=== PATIENT | female | born 1945 | race Caucasian/White ===

== ENCOUNTER → 2016-08-30 | Outpatient (CLI) | payer MEDICARE, BC | END | disposition home or self-care (01) | LOC: LABWHC1 10:00 | PROVIDERS: ATTEND Internal Medicine | DX: E11.9 Type 2 diabetes mellitus without complications (principal); I25.10 Atherosclerotic heart disease of native coronary artery without angina pectoris; I10 Essential (primary) hypertension; K21.0 Gastro-esophageal reflux disease with esophagitis; J44.9 Chronic obstructive pulmonary disease, unspecified | CPT/HCPCS: 36415; 82272 ==

== ENCOUNTER → 2017-05-18 | Outpatient (CLI) | payer MEDICARE, BC ==
[2017-05-18 09:32] LABS: CH 30.7; CHCM 32.5; HCT 37.7 % (34.0-46.0); HDW 2.87; HGB 12.7 gm/dL (11.4-16.0); MCH 31.9 pg (25.0-35.0); MCHC 33.6 g/dL (31.0-37.0); MCV 95.1 fL (80.0-100.0); Mean Platelet Volume 7.2; RBC 3.96 m/uL (3.80-5.40); RDW 14.3 % (11.5-15.5)
[2017-05-18 09:46] LABS: WBC 54.2 k/uL (3.8-10.6)
[2017-05-18 10:14] LABS: ALT 36 U/L (9-52); AST 20 U/L (14-36); Alkaline Phosphatase 108 U/L (38-126); Anion Gap 8 mmol/L; Blood Urea Nitrogen 16 mg/dL (7-17); Calcium 9.2 mg/dL (8.4-10.2); Carbon Dioxide 31 mmol/L (22-30); Chloride 104 mmol/L (98-107); Cholesterol 132 mg/dL (<200); Glucose 101 mg/dL (74-99); HDL Cholesterol 37 mg/dL (40-60); Non-African American GFR(MDRD) >60 (>60 ml/min/1.73 sqM); Potassium 4.5 mmol/L (3.5-5.1); Sodium 143 mmol/L (137-145); Total Bilirubin 0.5 mg/dL (0.2-1.3); Total Protein 6.1 g/dL (6.3-8.2)
--- NOTE | 2017-05-18 10:32 | XR ---
EXAMINATION TYPE: XR chest 2V DATE OF EXAM: 05/18/2017 COMPARISON: 09/17/2013 INDICATION: Hypertensive heart disease without heart failure, COPD, CHF TECHNIQUE: Frontal and lateral views of the chest are obtained. FINDINGS: The heart size is normal. The pulmonary vasculature is normal. The lungs are clear. IMPRESSION: 1. No acute pulmonary process.
[2017-05-19 11:35] LABS: Urine Creatinine 257.1 mg/dL
== END | disposition home or self-care (01) ==
LOC: LABWHC1 08:26
PROVIDERS: ATTEND Internal Medicine
DX: Z00.01 Encounter for general adult medical examination with abnormal findings (principal); E11.9 Type 2 diabetes mellitus without complications; I11.9 Hypertensive heart disease without heart failure; E66.1 Drug-induced obesity; K21.0 Gastro-esophageal reflux disease with esophagitis
CPT/HCPCS: 36415; 71020; 80053; 80061; 82043; 82272; 82570; 83036; 84439; 84443; 85027

== ENCOUNTER → 2018-02-26 | Outpatient (CLI) | payer MEDICARE, BC ==
--- NOTE | 2018-02-28 09:23 | MM ---
Reason for exam: screening (asymptomatic). Last mammogram was performed 2 years and 2 months ago. History: Patient is postmenopausal. Family history of breast cancer in sister at age 46. Physical Findings: A clinical breast exam by your physician is recommended on an annual basis and results should be correlated with mammographic findings. MG Screening Mammo w CAD Bilateral CC and MLO view(s) were taken. Prior study comparison: December 13, 2015, bilateral MG 3d screening mammo w/cad. November 20, 2014, bilateral MG screening mammo w CAD. There are scattered fibroglandular densities. No significant changes when compared with prior studies. ASSESSMENT: Benign, BI-RAD 2 RECOMMENDATION: Routine screening mammogram of both breasts in 1 year.
== END | disposition home or self-care (01) ==
LOC: RADMAMWWP 08:37
PROVIDERS: ATTEND Internal Medicine
DX: Z12.31 Encounter for screening mammogram for malignant neoplasm of breast (principal)
CPT/HCPCS: 77067

== ENCOUNTER → 2018-06-25 | Outpatient (CLI) | payer MEDICARE, BC ==
[2018-06-25 10:12] LABS: HCT 39.5 % (34.0-46.0); HGB 12.1 gm/dL (11.4-16.0); Hypochromasia Slight; MCH 28.4 pg (25.0-35.0); MCHC 30.7 g/dL (31.0-37.0); MCV 92.3 fL (80.0-100.0); Mean Platelet Volume 6.7; Platelet Count 249 k/uL (150-450); RBC 4.28 m/uL (3.80-5.40); RDW 15.8 % (11.5-15.5)
[2018-06-25 10:29] LABS: WBC 63.2 k/uL (3.8-10.6)
[2018-06-25 16:50] LABS: Albumin 4.1 g/dL (3.80-4.90); Albumin/Globulin Ratio 2.28 (1.20-2.10); Anion Gap 8.9 mmol/L (4.00-12.00); Calcium 8.8 mg/dL (8.7-10.3); Carbon Dioxide 28.1 mmol/L (21.6-31.8); Globulin 1.8 g/dL (1.6-3.3); LDL Cholesterol,Calculated 87.8 mg/dL (0.0-131.0); Total Bilirubin 0.6 mg/dL (0.2-1.2); Total Protein 5.9 g/dL (6.2-8.2); VLDL Calculation 19.2 mg/dL (5.00-40.00)
[2018-06-25 16:58] LABS: T4, Free (Free Thyroxine) 0.9 ng/dL (0.80-1.80)
[2018-06-25 18:00] LABS: Hemoglobin A1C 6.3 % (4.0-6.0)
== END | disposition home or self-care (01) ==
LOC: LABWHC1 08:43
PROVIDERS: ATTEND Internal Medicine
DX: Z00.01 Encounter for general adult medical examination with abnormal findings (principal); I11.9 Hypertensive heart disease without heart failure; E11.9 Type 2 diabetes mellitus without complications; E78.2 Mixed hyperlipidemia; K21.0 Gastro-esophageal reflux disease with esophagitis
CPT/HCPCS: 36415; 80053; 80061; 82043; 82272; 82570; 83036; 84439; 84443; 85027

== ENCOUNTER 2018-10-02 06:59 | Day surgery (SDC) | payer MEDICARE, BC ==
[2018-09-30 10:48] VITALS: BMI 54.6
[~2018-10-02 06:59] MED LIST: LACTATED RINGERS 1,000 ML IV SCH; LIDOCAINE 1% 20 ML VIAL (10MG/ML) FOR IV START INTRADERMA PRN; MOXIFLOXACIN HCL 0.5% DROPS 3 ML BTL OP NR; TETRACAINE 0.5% OPHTH (PF) DROPS 4 ML BTL OP NR
[2018-10-02] MEDS: PILOCARPINE 2% OPHTH DROPS 15 ML BTL OP NR ×3 (07:15→07:30)
[2018-10-02 07:58] VITALS: TEMP 97.1
[2018-10-02] MEDS ORDERED: fentaNYL (PF) 50 MCG/ML 2 ML AMP ONE (08:23)
[2018-10-02] MEDS ORDERED: MIDAZOLAM 2 MG/2 ML VIAL ONE (08:23)
[2018-10-02] MEDS ORDERED: TIMOLOL 0.5% OPHTH SOLN (PF) 0.2 ML DROPERETTE RIGHT EYE ONE (08:49)
[2018-10-02] MEDS ORDERED: BALANCED SALT IRRIG SOLN COMB2 15 ML IRRIG.SOLN INTRAOCULA ONE (08:49)
[2018-10-02] MEDS ORDERED: EPINEPHrine (PF) 0.3 ML in BALANCED SALT IRRIG SOLN COMB2 500 ML IRRIGATION ONE (08:51)
[2018-10-02] MEDS ORDERED: LIDOCAINE (PF) 10 MG/ML 5ML AMP SQ ONE (08:56)
[2018-10-02] MEDS ORDERED: TRYPAN BLUE 0.06% SYRINGE 0.5 ML SYRINGE MISCELLANE ONE (09:04)
[2018-10-02] MEDS ORDERED: HYALURONATE SODIUM INTRAOCULAR 1 EACH SYRINGE (12MG/ML) INTRAOCULA ONE (09:04)
--- NOTE | 2018-10-02 09:52 | P.OP ---
Date of Procedure: 10/02/18 Preoperative Diagnosis: Fuch's dystrophy Postoperative Diagnosis: same Procedure(s) Performed: DMEK Implants: none Anesthesia: MAC Surgeon: Jon Zamudio Pathology: none sent Condition: stable Disposition: same day Indications for Procedure: blurry vision Operative Findings: mild AC bleeding, otherwise no complications. Significant musculoskeletal discomfort and associated movement
[2018-10-02 10:13] VITALS: RESP 18
[2018-10-02 11:12] VITALS: BP 140/83; PULSE 56
--- NOTE | 2018-10-02 19:46 | OP ---
OPERATIVE REPORT DATE OF SURGERY: October 02, 2018. PROCEDURE PERFORMED: Descemet's endothelial keratoplasty of the right eye. PREOPERATIVE DIAGNOSIS: Fuchs corneal dystrophy. POSTOPERATIVE DIAGNOSIS: Fuchs corneal dystrophy SURGEON: Dr. Jon Zamudio. ANESTHESIA: Topical. ESTIMATED BLOOD LOSS: None. SPECIMEN: Taken none. NARRATIVE: After obtaining the appropriate consent, the patient was brought to the operating room. There she was placed under cardiac monitoring, prepped and draped in the usual sterile manner. She was approached from her right temporal side and for paracenteses at the axis of 5 o'clock, 10 o'clock, 12:00 o'clock, and 4 o'clock were placed at the corneal limbus. Through this opening, 1% Xylocaine MPF 50 50 mix with balanced salt solution was injected into the anterior chamber. This was followed by installation of Trypan blue which was left in the eye for approximately 3 minutes. This was irrigated away and replaced with Amvisc. An 8.25 mm Hanan trephination ring was placed on the cornea gently and then was removed and the outline of the area was marked with a gentian mary marker. A [employer] hook was inserted into the anterior chamber and stripping at the limits of the pabon placed on the anterior cornea. The cornea was easily stripped without much difficulty along its entire 360 degree circumference. Once this was accomplished, a 2.5 mm keratome was used to create a self-sealing corneal flap incision at the 9 o'clock position. Through this opening, a Descemet's membrane stripper instrument was inserted and the entire cornea endothelial layer of the cornea was removed in 1 piece. Irrigation aspiration was then used to remove the viscoelastic and balanced salt solution was used to replace the volume in the anterior chamber. The donor tissue, which was stripped and pre-loaded from the eye bank was properly identified as tissue #[id number], cornea and Optisol posterior layer only at this time. The previously prepared tissue was brought directly to the patient and the tissue was instilled into the patient's eye without difficulty. The temporal incision was closed with a single 10-0 nylon fashion suture in an X fashion. Manipulation of the donor tissue began with the usual measures to lay the tissue in its proper orientation and out within the patient's cornea. It did require a couple of episodes of re- instilling balanced salt solution and then subsequently removing it in order to get the tissue to be oriented correctly. Once this was accomplished, a gas bubble consisting of 20% SF6 was placed underneath the tissue and buoyed it and securing it in the proper position. During this stage of the procedure, it was identified that there was some bleeding that occurred at the 8 o'clock position in the patient's eye. Very quickly the eye pressure was brought to approximately 40-50 mmHg in an effort to tamponade further bleeding within the eye. The pressure was maintained. The patient was able to perceive light through the eye at this pressure for approximately 20 minutes. Once that time was completed, balanced salt solution replaced a portion of the SF6 gas in the front chamber and the eye was brought to a reasonable intra-ocular pressure by palpation. She was then returned to the recovery area lying flat on her back and stayed in place in the recovery area for approximately an hour and 15 minutes. After this phase of the procedure, she was asked to sit upright and was examined at the slit lamp. There was noted a small hyphema within the anterior chamber. However, the Descemet's membrane was in the proper position with an adequate air bubble and fluid in her face. She was returned home without further intervention. There were no additional difficulties encountered during the procedure and she was discharged to home from the recovery area in good condition. MMKILEY / CLARITA: [id number] /
[2018-10-03 10:24] LABS: Glucose,Whole Blood 112 mg/dL (75-99)
== END 2018-10-02 11:37 | disposition home or self-care (01) ==
LOC: OR 06:59
PROVIDERS: ATTEND Ophthalmology
DX: H18.51 Endothelial corneal dystrophy (principal); H40.50 Glaucoma secondary to other eye disorders, unspecified eye; H40.831 Aqueous misdirection, right eye; H26.9 Unspecified cataract; H00.026 Hordeolum internum left eye, unspecified eyelid; H00.023 Hordeolum internum right eye, unspecified eyelid; H52.13 Myopia, bilateral; H52.4 Presbyopia; Z96.1 Presence of intraocular lens; I11.0 Hypertensive heart disease with heart failure; I50.9 Heart failure, unspecified; J43.9 Emphysema, unspecified; Z86.73 Personal history of transient ischemic attack (TIA), and cerebral infarction without residual deficits; M19.90 Unspecified osteoarthritis, unspecified site; Z87.891 Personal history of nicotine dependence; E66.9 Obesity, unspecified; Z68.43 Body mass index [BMI] 50.0-59.9, adult; Z95.820 Peripheral vascular angioplasty status with implants and grafts; Z79.84 Long term (current) use of oral hypoglycemic drugs; Z79.02 Long term (current) use of antithrombotics/antiplatelets; Z79.82 Long term (current) use of aspirin; Z79.899 Other long term (current) drug therapy
CPT/HCPCS: 87070; 87205; 87075; 65756; V2785; J2250; J0171; J2001; J3010

== ENCOUNTER → 2019-05-01 | Outpatient (CLI) | payer MEDICARE, BC ==
[2019-05-01 10:10] LABS: Appearance,Urine Clear (Clear); Bacteria,Urine Rare /hpf; Bilirubin,Urine Negative (Negative); Blood,Urine Negative (Negative); Color,Urine Yellow; Glucose,Urine (UA) Negative (Negative); Ketones,Urine Negative (Negative); Leukocyte Esterase,Urine Moderate (Negative); Mucus,Urine Rare /hpf; Nitrite,Urine Negative (Negative); PH, Urine 5.5 (5.0-8.0); Protein,Urine Negative (Negative); RBC,Urine 2 /hpf (0-5); Specific Gravity,Urine 1.025 (1.001-1.035); Squamous Epithelial Cell,Urine 4 /hpf (0-4); WBC,Urine 8 /hpf (0-5)
[2019-05-01 10:14] LABS: HGB 12.2 gm/dL (11.4-16.0); MCH 30.9 pg (25.0-35.0); MCHC 32.9 g/dL (31.0-37.0); Mean Platelet Volume 6.4; Platelet Count 218 k/uL (150-450); RBC 3.94 m/uL (3.80-5.40); RDW 15.8 % (11.5-15.5)
[2019-05-01 10:31] LABS: WBC 68.7 k/uL (3.8-10.6)
[2019-05-01 11:58] LABS: Lymphocytes # (M) 61.14 k/uL (1.0-4.8); Monocytes # (M) 0.69 k/uL (0-1.0); Neutrophils # (M) 6.87 k/uL (1.3-7.7); Neutrophils % (M) 10 %; Nucleated Red Blood Cells 0 /100 WBC (0-0); Total Cells Counted 100
[2019-05-01 12:02] LABS: Poikilocytosis (M) Present
[2019-05-01 12:35] LABS: Erythrocyte Sedimentation Rate 16 mm/hr (0-20)
[2019-05-01 17:09] LABS: Albumin 4.1 g/dL (3.80-4.90); Albumin/Globulin Ratio 2.28 (1.60-3.17); Anion Gap 8.2 mmol/L (4.00-12.00); BUN/Creat Ratio 26.25 Ratio (12.00-20.00); C Reactive Protein 0.8 mg/dL (0.0-0.8); Calcium 9.1 mg/dL (8.7-10.3); Carbon Dioxide 27.8 mmol/L (21.6-31.8); Chol/HDL Ratio 4.5; Globulin 1.8 g/dL (1.6-3.3); Magnesium 1.6 mg/dL (1.5-2.4); Non-African American GFR(CKD) 74.2 (60.0-200.0); Phosphorus 3.3 mg/dL (2.4-5.1); Potassium 4.3 mmol/L (3.5-5.5); Total Bilirubin 0.7 mg/dL (0.3-1.2); Total Protein 5.9 g/dL (6.2-8.2)
[2019-05-01 18:05] LABS: Hemoglobin A1C 6.3 % (4.0-6.0)
== END | disposition home or self-care (01) ==
LOC: LABWHC1 09:07
PROVIDERS: ATTEND Internal Medicine
DX: D64.9 Anemia, unspecified (principal); J44.9 Chronic obstructive pulmonary disease, unspecified; E87.8 Other disorders of electrolyte and fluid balance, not elsewhere classified; M10.9 Gout, unspecified; E78.5 Hyperlipidemia, unspecified; I10 Essential (primary) hypertension; E03.9 Hypothyroidism, unspecified; E55.9 Vitamin D deficiency, unspecified
CPT/HCPCS: 36415; 80053; 80061; 81001; 82306; 82550; 83036; 83735; 84100; 84439; 84443; 85025; 85652; 86140

== ENCOUNTER 2021-12-21 06:50 | Day surgery (SDC) | payer MEDICARE, BC ==
[~2021-12-21 06:50] MED LIST changes: +ATROPINE OPHTH SOLN 1% 5ML BTL OPHTHALMIC PRN; +LIDOCAINE 1% (10MG/ML) FOR IV START INTRADERMA PRN; -LIDOCAINE 1% 20 ML VIAL (10MG/ML) FOR IV START INTRADERMA PRN; -MOXIFLOXACIN HCL 0.5% DROPS 3 ML BTL OP NR; +MOXIFLOXACIN HCL 0.5% DROPS 3 ML BTL OP PRN; -TETRACAINE 0.5% OPHTH (PF) DROPS 4 ML BTL OP NR; +TIMOLOL 0.5% OPHTH DROPS 5 ML BTL OP PRN
[2021-12-21 08:07] VITALS: TEMP 97.5
[2021-12-21] MEDS: PILOCARPINE 2% OPHTH DROPS 15 ML BTL OP PRN ×3 (08:15→08:25)
[2021-12-21 08:27] LABS: Glucose,Whole Blood 108 mg/dL (70-110)
[2021-12-21] MEDS ORDERED: fentaNYL (PF) 50 MCG/ML 2 ML AMP ONE (08:39)
[2021-12-21] MEDS ORDERED: MIDAZOLAM 2 MG/2 ML VIAL ONE (08:39)
[2021-12-21] MEDS ORDERED: BALANCED SALT IRRIG SOLN COMB2 15 ML IRRIG.SOLN INTRAOCULA ONE ×2 (08:58→09:06)
[2021-12-21] MEDS ORDERED: TRYPAN BLUE 0.06% SYRINGE 0.5 ML SYRINGE INTRAOCULA ONE ×2 (08:59→09:06)
[2021-12-21] MEDS ORDERED: TIMOLOL 0.5% OPHTH DROPS 5 ML BTL RIGHT EYE ONE ×2 (09:06→10:13)
[2021-12-21] MEDS ORDERED: HYALURONATE SODIUM INTRAOCULAR 1 EACH SYRINGE (12MG/ML) INTRAOCULA ONE (09:06)
[2021-12-21] MEDS ORDERED: ATROPINE OPHTH SOLN 1% 5ML BTL RIGHT EYE ONE ×2 (09:06→10:13)
[2021-12-21] MEDS ORDERED: BALANCED SALT IRRIG SOLN COMB2 500 ML IRRIGATION ONE (09:06)
--- NOTE | 2021-12-21 10:18 | P.OP ---
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
[2021-12-21 10:50] VITALS: RESP 16
[2021-12-21 10:54] VITALS: PULSE 54
[2021-12-21 10:55] VITALS: BP 121/72
--- NOTE | 2021-12-22 10:14 | OP ---
OPERATIVE REPORT DATE OF SURGERY: December 21, 2021. PROCEDURE: Descemet's membrane and endothelial keratoplasty of the right eye. 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 SURGEON: Dr. Jon Zamudio. ANESTHESIA: Monitored anesthesia care. ESTIMATED BLOOD LOSS: None. SPECIMEN: None DESCRIPTION OF PROCEDURE: After obtaining the appropriate consent, the patient was brought to the operating room. There she was placed under cardiac monitoring, prepped and draped in the usual sterile manner. She was approached from her right temporal side. The currently implanted corneal transplant was identified and marked with a gentian mary marker on the epithelial surface in the 7.5 mm diameter area. Four paracenteses were performed using an MVR blade in each of the diagonal quadrants and a temporal incision with a 2.5 mm keratome was created and its size was adjusted to fit the tip of a Velasquez tube device. 1% lidocaine MPF 50:50 mix with balanced salt solution was injected into the anterior chamber. This was followed then by stabilization of the anterior chamber with Amvisc. Using a Treviño S[employer]key hook the endothelium was scored using the instrument at the edge of the previously implanted Descemet's donor tissue. Once the endothelium was adequately scored, a membrane stripper was then used to remove the diseased donor transplant tissue. Care was taken to ensure that all remnants of the damaged endothelium was removed from the central area of the patient's cornea. Irrigation and aspiration were then used to remove all remaining viscoelastic from within the anterior chamber at this point and balanced salt solution was used to deepen the anterior chamber only moderately. Attention was then directed to the donor tissue. It was removed from its transport media and placed into a Nancy dish insuring no bubbles were captured in the delivery system. This was then attached to a syringe partially filled with balanced salt solution and the donor tissue was carefully brought onto the patient's eye. The tip of the Velasquez tube apparatus was brought to just slightly bear inside the anterior chamber and very carefully the donor tissue was then expressed into the anterior chamber. Care was taken to ensure the temporal incision remained small enough that the donor tissue remain confined within the anterior chamber. A single 10-0 nylon suture in an X fashion was used to close the temporal incision. The anterior chamber was then shallowed further from one of the paracenteses, leaving only room necessary to perform the unfolding of the donor tissue. This was performed without any significant difficulty and unfolded in the correct orientation during the first attempt. Confirmation was made noting that the Esmarch was properly oriented as well. Minor adjustments were used to center the donor tissue and once appropriately centered, a small air bubble was introduced beneath the donor Descemet's tissue which buoyed the tissue against the host corneal stroma. The chamber was further deepened with 20% sulfur hexafluoride through a 30-gauge needle which was tangentially passed into the anterior chamber. The pressure of the eye was brought to approximately 45/50 mmHg with confirmation of some remaining vision in the eye according to the patient. After the initial 5 minutes of this very high pressure, a small amount of the gas was removed with improvement of perception of light confirmed by the patient and an additional 20 minutes of time elapsed in this condition before replacing some of the gas with balanced salt solution, leaving approximately a 30-40 percent gas bubble in the anterior chamber. At the end of the elapsed 25 minutes, the patient then received 2 drops of 0.5% timolol, 2 drops of 1% atropine and 2 drops of 0.5% moxifloxacin. She was shielded without a patch and returned to the recovery area where she remained supine for an additional hour. At the end of that elapsed time, she was brought to the slit- lamp and was examined. She denied any significant pressure difficulty from the eye and a 30% gas bubble was appreciated in the anterior chamber with good adhesion of the donor to the patient's host cornea. At this stage of the of the procedure, the patient was then dismissed directly from the recovery area. She tolerated the procedure well and there were no difficulties encountered during the course of the procedure. MMODL / IJN: [id number] /
== END 2021-12-21 11:30 | disposition home or self-care (01) ==
LOC: OR 06:50
PROVIDERS: ATTEND Ophthalmology
DX: T86.8411 Corneal transplant failure, right eye (principal); H18.511 Endothelial corneal dystrophy, right eye; I11.0 Hypertensive heart disease with heart failure; I50.9 Heart failure, unspecified; I25.2 Old myocardial infarction; E78.5 Hyperlipidemia, unspecified; G47.33 Obstructive sleep apnea (adult) (pediatric); J44.9 Chronic obstructive pulmonary disease, unspecified; E11.9 Type 2 diabetes mellitus without complications; Z87.891 Personal history of nicotine dependence; Z86.73 Personal history of transient ischemic attack (TIA), and cerebral infarction without residual deficits; Z95.828 Presence of other vascular implants and grafts; Z79.899 Other long term (current) drug therapy; Z79.02 Long term (current) use of antithrombotics/antiplatelets; Z91.09 Other allergy status, other than to drugs and biological substances; Z97.2 Presence of dental prosthetic device (complete) (partial)
CPT/HCPCS: 87070; 87205; 87075; 65756; J2250; J3010